=== PATIENT | female | born 1980 | race Caucasian/White ===

== ENCOUNTER 2022-10-01 13:19 | Outpatient (CLI) | payer OTHER, SELFPAY ==
--- NOTE | 2022-10-01 13:20 | CRLHL7_ITS ---
For Patients: As a result of the Century Cures Act, medical imaging exams and procedure reports are released immediately into your electronic medical record. You may view this report before your referring provider. If you have questions, please contact your health care provider. BILATERAL SCREENING MAMMOGRAM WITH COMPUTER-AIDED DETECTION AND TOMOSYNTHESIS TECHNIQUE: CC and MLO views were obtained. These mammographic images have been obtained using full-field digital technique. These mammographic images were interpreted with the benefit of computer-aided detection. Breast Tomosynthesis was used in this interpretation. COMPARISON FILM: Baseline. FINDINGS: There are scattered areas of fibroglandular density. IMPRESSION: There is no radiographic evidence for malignancy. ASSESSMENT: BI-RADS Category 1: Negative RECOMMENDATION: Routine screening mammogram in 1 year. A lay language report of this examination will be provided to the patient. Kieran Gutierrez M.D. Diagnostic Radiologist [email or web address] Transcribed: 9:48 a.m. PT/Dictated by: Kieran Gutierrez MD @ 10/05/2022 8:23:00 AM (Electronically Signed)
== END 2022-10-01 13:20 | disposition home or self-care (01) ==
LOC: MAMMO 13:20
PROVIDERS: PCP Family Medicine; Visit Provider Obstetrics & Gynecology
DX: Z12.31 Encounter for screening mammogram for malignant neoplasm of breast (principal)
CPT/HCPCS: 77063; 77067

== ENCOUNTER 2023-08-30 16:01 | Outpatient (CLI) | payer OTHER, SELFPAY | END 2023-08-30 16:02 | disposition home or self-care (01) | PROVIDERS: PCP Family Medicine; Visit Provider Family Medicine | DX: R53.83 Other fatigue (principal); R63.5 Abnormal weight gain; Z13.220 Encounter for screening for lipoid disorders | CPT/HCPCS: 80053; 80061; 84443 ==

== ENCOUNTER 2025-04-26 13:48 | Outpatient (CLI) | payer OTHER, SELFPAY ==
--- NOTE | 2025-04-26 14:00 | CRLHL7_ITS ---
For Patients: As a result of the Century Cures Act, medical imaging exams and procedure reports are released immediately into your electronic medical record. You may view this report before your referring provider. If you have questions, please contact your health care provider. INDICATION: Frequent cycles for the last 7 months COMPARISON: 04/06/2021 TECHNIQUE: 2D trujillo-scale and color Doppler images were acquired of the pelvis using a transabdominal and transvaginal approach. Transvaginal imaging performed to better visualize the endometrial stripe and ovaries. FINDINGS: Sonographic images demonstrate a normal size and smooth outer contour of the uterus. Uterus measures 10.0 cm in length by 4.9 cm in AP diameter by 6.4 cm in transverse dimension. The myometrium has a mildly heterogeneous echotexture. The endometrial lining appears normal and measures 5.0 mm in composite thickness. The right ovary measures 2.5 x 1.2 x 1.3 cm in size and the left ovary measures 3.7 x 1.7 x 3.1 cm. The ovaries demonstrate normal arterial and venous blood flow on color Doppler analysis. There are no suspicious fluid collections within the cul-de-sac. Simple left ovarian cyst measures 2.2 x 1.9 x 1.9 cm. IMPRESSION: Endometrium measures 5 millimeters. Dictated by Kieran Gutierrez MD @ 04/26/2025 4:28:45 PM (Electronically Signed)
== END 2025-04-26 13:49 | disposition home or self-care (01) ==
LOC: US 13:48
PROVIDERS: PCP Family Medicine; Visit Provider Obstetrics & Gynecology
DX: N92.4 Excessive bleeding in the premenopausal period (principal); R93.89 Abnormal findings on diagnostic imaging of other specified body structures
CPT/HCPCS: 76830; 76856

== ENCOUNTER 2025-08-27 09:31 | Outpatient (CLI) | payer OTHER, SELFPAY ==
--- NOTE | 2025-08-27 11:06 | P.ANES_ITS ---
Anesthesia Charges Start Date/Time Anesthesia Start Date: 08/27/25 Anesthesia Start Time: 10:25 Stop Date/Time Anesthesia Stop Date: 08/27/25 Anesthesia Stop Time: 11:05 Coding CPT Codes CPT Codes: SAVAGE HERNANDEZ INTST NDSC NOS - 82264 ([id number]) P2 - PATIENT W/MILD SYST DISEASE, QX - DENTAL AMALGAM PROCESSOR SVC W/ MD MED DIRECTION, QK - VERTICAL PUNCH OPERATOR 2-4 CNCRNT SAVAGE PROC
--- NOTE | 2025-08-27 11:06 | W.ANESCHARGE ---
Anesthesia Charges Start Date/Time Anesthesia Start Date: 08/27/25 Anesthesia Start Time: 10:25 Stop Date/Time Anesthesia Stop Date: 08/27/25 Anesthesia Stop Time: 11:05 Coding CPT Codes CPT Codes: SAVAGE HERNANDEZ INTST NDSC NOS - 76416 ([id number]) P2 - PATIENT W/MILD SYST DISEASE, QX - PHLEBOTOMY SERVICES TECHNICIAN SVC W/ MD MED DIRECTION, QK - OPERATIONS EXAMINER 2-4 CNCRNT SAVAGE PROC
--- NOTE | 2025-08-27 11:11 | P.ANES_ITS ---
Anesthesia Charges Start Date/Time Anesthesia Start Date: 08/27/25 Anesthesia Start Time: 10:25 Stop Date/Time Anesthesia Stop Date: 08/27/25 Anesthesia Stop Time: 11:05 Coding CPT Codes CPT Codes: SAVAGE LWR INTST NDSC NOS - 94537 ([id number]) P2 - PATIENT W/MILD SYST DISEASE, QK - STEWARD/STEWARDESS SECOND 2-4 CNCRNT ANES PROC, QX - FUR MIXER SVC W/ MD MED DIRECTION
--- NOTE | 2025-08-27 11:11 | W.ANESCHARGE ---
Anesthesia Charges Start Date/Time Anesthesia Start Date: 08/27/25 Anesthesia Start Time: 10:25 Stop Date/Time Anesthesia Stop Date: 08/27/25 Anesthesia Stop Time: 11:05 Coding CPT Codes CPT Codes: SAVAGE LWR INTST NDSC NOS - 88680 ([id number]) P2 - PATIENT W/MILD SYST DISEASE, QK - CERTIFIED REGISTERED NURSE PRACTITIONER 2-4 CNCRNT ANES PROC, QX - BUSHER HELPER SVC W/ MD MED DIRECTION
== END 2025-08-27 09:32 | disposition home or self-care (01) ==
LOC: OP CLINIC 09:33
PROVIDERS: PCP Family Medicine; Visit Provider Surgery
DX: Z12.11 Encounter for screening for malignant neoplasm of colon (principal); D12.3 Benign neoplasm of transverse colon; D12.8 Benign neoplasm of rectum; K64.8 Other hemorrhoids
CPT/HCPCS: 00811; 00812; 45385; J2405; J2704

== ENCOUNTER 2025-10-04 07:36 | Outpatient (CLI) | payer OTHER, SELFPAY ==
--- NOTE | 2025-10-04 07:45 | CRLHL7_ITS ---
For Patients: As a result of the Cures Act, medical imaging exams and procedure reports are released immediately into your electronic medical record. You may view this report before your referring provider. If you have questions, please contact your health care provider. INDICATION: BILATERAL SCREENING MAMMOGRAM, ASYMPTOMATIC 45 Y/O FEMALE COMPARISON: 10/01/2022 TECHNIQUE: Digital mammogram in CC and MLO projections including computer-aided detection (CAD) and tomosynthesis. BREAST COMPOSITION: The breasts are heterogeneously dense, which may obscure small masses. FINDINGS: No suspicious findings. ASSESSMENT: BI-RADS 1 Negative RECOMMENDATION: Annual screening mammogram. A lay language report of this examination will be provided to the patient. Dictated by: Randi Frederick MD @ 10/04/2025 14:26:26 (Electronically Signed)
== END 2025-10-04 07:37 | disposition home or self-care (01) ==
LOC: MAMMO 07:37
PROVIDERS: PCP Family Medicine; Visit Provider Family Medicine
DX: Z12.31 Encounter for screening mammogram for malignant neoplasm of breast (principal); R92.333 Mammographic heterogeneous density, bilateral breasts
CPT/HCPCS: 77063; 77067